=== PATIENT | male | born 1995 | race Caucasian/White ===

== ENCOUNTER 2017-04-23 01:43 | Emergency (ER) | payer MEDICAID ==
[2017-04-23 01:47] VITALS: RESP 18
[2017-04-23] MEDS ORDERED: ACETAMINOPHEN 500 MG TAB PO ONE (02:37)
[2017-04-23] MEDS ORDERED: IBUPROFEN 600 MG TAB PO ONE (02:38)
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
[2017-04-23] MEDS ORDERED: HYDROCOD/APAP 5/325 PREPACK#6 BTL TAKEHOME ONE (03:43)
[2017-04-23 04:08] VITALS: BP 131/74; PULSE 78; TEMP 97.9; O2SAT 95
== END 2017-04-23 04:08 | disposition home or self-care (01) ==
DX: S02.609A Fracture of mandible, unspecified, initial encounter for closed fracture (principal); F17.200 Nicotine dependence, unspecified, uncomplicated; W51.XXXA Accidental striking against or bumped into by another person, initial encounter